=== PATIENT | female | born 2000 | race Caucasian/White ===

== ENCOUNTER 2019-03-10 15:15 | Emergency (ER) | payer OTHER ==
[2019-03-10 16:15] VITALS: BP 115/61
--- NOTE | 2019-03-10 17:00 | UC ---
Skin Complaint HPI - HPI Summary HPI Summary: 18 y/o female presents to the urgent care c/o a discrete painful pimple on the RT gluteus close to her rt side of her coccyx since yesterday. Her mother advised her to come to the clinic before it becomes bigger. Pain is 1/10 at tocuh and denies any fever, or drainage. Pt denies Hx of abbesses in the past, lower back pain, flank pain or urinary symptoms, SOB, chest pain, N/V/D. Pt has not taken anything to alleviate symptoms. - History of Current Complaint Chief Complaint: UCSkin Time Seen by Provider: 03/10/19 16:59 Stated Complaint: CYST Hx Obtained From: Patient Hx Last Menstrual Period: 03/03 Onset/Duration: Gradual Onset, Lasting Days - 1 day, Still Present, Worse Since - this morning w/ mild pain at touch Skin Exposure Onset/Duration: Days Ago - 1 day Timing: Constant Onset Severity: Mild Current Severity: Mild Pain Intensity: 1 Pain Scale Used: 0-10 Numeric Character: Pain - at touch Aggravating Factor(s): Touch Alleviating Factor(s): Nothing Associated Signs & Symptoms: Positive: Rash - discrete infected pimple at the beginning of her mid line of her buttocks. Negative: Fever Related History: Other: - pimple - Allergy/Home Medications Allergies/Adverse Reactions: Allergies Allergy/AdvReac Type Severity Reaction Status Date / Time No Known Allergies Allergy Verified 03/10/19 16:07 Home Medications: Home Medications O C 1 tab PO QPM 03/10/19 [History Confirmed 03/10/19] PMH/Surg Hx/FS Hx/Imm Hx Previously Healthy: Yes - Pt denies PMHX - Surgical History Surgical History: Yes Surgery Procedure, Year, and Place: Right hip 2016 - Family History Known Family History: Positive: None - Pt denies FMHX - Social History Occupation: Student Lives: With Family Alcohol Use: Rare Substance Use Type: None Smoking Status (MU): Never Smoked Tobacco - Immunization History Vaccination Up to Date: Yes Review of Systems All Other Systems Reviewed And Are Negative: Yes Constitutional: Positive: Negative Skin: Positive: Other - discrete infected pimple at the beginning of her mid line of her buttocks Eyes: Positive: Negative ENT: Positive: Negative Respiratory: Positive: Negative Cardiovascular: Positive: Negative Gastrointestinal: Positive: Negative Genitourinary: Positive: Negative Motor: Positive: Negative Neurovascular: Positive: Negative Musculoskeletal: Positive: Negative Neurological: Positive: Negative Psychological: Positive: Negative Is Patient Immunocompromised?: No Physical Exam - Summary Physical Exam Summary: Vital Signs Reviewed: Yes General: well developed, well nourished female sitting in the examining table w/ o any apparent distress Eye Exam: Normal Eyes: Positive: Conjunctiva Clear - PERRLA, EOMI, fundi grossly normal ENT: Positive: Normal ENT inspection, Hearing grossly normal, Pharynx normal, TMs normal Neck: Positive: Supple, Nontender, No Lymphadenopathy Respiratory: Positive: Chest non-tender, Lungs clear, Normal breath sounds, No respiratory distress Cardiovascular: Positive: RRR, No Murmur, Pulses Normal, Brisk Capillary Refill Abdomen Description: Positive: Nontender, No Organomegaly, Soft. Negative: CVA Tenderness (R), CVA Tenderness (L) Bowel Sounds: Positive: Present Musculoskeletal: Positive: Strength Intact, ROM Intact, No Edema Neurological: Positive: Alert, Muscle Tone Normal Psychological Exam: Normal Skin: Positive: beginning of the midline of the gluteus w/ a discrete pustule vs pimple , no surrounding erythema observed, no induration palpated or fluctuant, mild tender to palpation, no swelling observed, and warm to touch.. Triage Information Reviewed: Yes Vital Signs: Initial Vital Signs Temp 99 F 03/10/19 16:09 Pulse 54 03/10/19 16:09 Resp 18 03/10/19 16:09 BP 115/61 03/10/19 16:09 Pulse Ox 100 03/10/19 16:09 Course/Dx - Course Course Of Treatment: 18 y/o female presents to the urgent care c/o a discrete painful pimple on the RT gluteus close to her rt side of her coccyx since yesterday. Her mother advised her to come to the clinic before it becomes bigger. Pain is 1/10 at touch and denies any fever, or drainage. Pt denies Hx of abbesses in the past, lower back pain, flank pain or urinary symptoms, SOB, chest pain, N/V/D. Pt has not taken anything to alleviate symptoms. Hx obtained. Pt is hemodynamically stable, S&OX3. Pt w/positive beginning of the midline of the gluteus w/ a discrete pustule vs pimple , no surrounding erythema observed, no induration palpated or fluctuant, mild tender to palpation, no swelling observed, and warm to touch. It is not a pilonidal cyst. However Pt educated on these cysts and Pt Rx Keflex PO and Bacitracin oint. Advised to apply warm compressed to alleviate symptoms. Advised to take Ibuprofen PO for pain. However advised if symptoms do not improve and cyst increases in size and very painful to go immediately to the ER cor further management. D/C instructions explained. PT understood and agreed w/ plan of care. - Differential Diagnoses - Skin Complaint Differential Diagnoses: Abscess, Cellulitis, Contact Dermatitis, Local Allergic Reaction, MRSA, Urticaria - Diagnoses Provider Diagnosis: Skin pustule Discharge ED - Sign-Out/Discharge Documenting (check all that apply): Patient Departure - d/c home All imaging exams completed and their final reports reviewed: No Studies - Discharge Plan Condition: Stable Disposition: HOME Prescriptions: Bacitracin OINTMENT* 1 applic TOPICAL BID #1 tube Cephalexin CAP* [Keflex CAP*] 500 mg PO QID #28 cap Patient Education Materials: Pilonidal Cyst (ED) Referrals: [facility] [Outside] - 3 Days Additional Instructions: 1-Please take full course of antibiotic to avoid resistance. Keep wound clean and dry with a sterile dressing. Apply bacitracin topical as directed 2-Take Ibuprofen PO 600mg q6-8hrs prn for pain or swelling. Apply warm compresses to alleviate symptoms 4-If you develop fever or pustule increases in size and becomes an abscess despite taking antibiotic please go to the ER immediately for further management. - Billing Disposition and Condition Condition: STABLE Disposition: Home
== END 2019-03-10 17:38 | disposition home or self-care (01) ==
LOC: UCCORT 15:15
DX: L08.9 Local infection of the skin and subcutaneous tissue, unspecified (principal)
CPT/HCPCS: 99202; G0463